=== PATIENT | female | born 1990 | race Caucasian/White ===

== ENCOUNTER 2017-04-08 08:45 | Day surgery (SDC) | payer OTHER ==
[2017-04-08 09:12] LABS: HEMATOCRIT 40.6 % (36.0-47.0); HEMOGLOBIN 14.6 g/dL (12.0-15.5); HGB HCT DIFFERENCE 3.2; MEAN CORPUSCULAR HGB CONC 35.9 g/dL (32.0-36.0); MEAN CORPUSCULAR VOLUME 92 fl (80-97); RED BLOOD COUNT 4.41 10^6/uL (3.72-5.28); RED CELL DISTRIBUTION WIDTH 12.5 % (11.5-14.0); WHITE BLOOD COUNT 6.8 10^3/uL (4.0-10.5)
[2017-04-08 09:23] LABS: BLOOD UREA NITROGEN 7 mg/dL (7-20); CREATININE RESULT 0.59 mg/dL (0.52-1.25)
[2017-04-08 09:33] LABS: PROTHROMBIN TIME 13.4 SEC (11.4-15.4)
[2017-04-08 09:34] LABS: PARTIAL THROMBOPLASTIN TIME 30.1 SEC (23.5-35.8)
[2017-04-08] MEDS ORDERED: MIDAZOLAM 2 MG/2 ML INJ ONE (10:45)
[2017-04-08] MEDS ORDERED: FENTANYL CITRATE INJ/PF 100 MCG/2 ML AMPUL ONE (10:46)
--- NOTE | 2017-04-08 11:42 | RADIOLOGY REPORT (SQ) ---
EXAM DESCRIPTION: CT BIOPSY LIVER; CT NEEDLE PLACEMENT COMPLETED DATE/TIME: 04/08/2017 11:33 am REASON FOR STUDY: HEP C, ELEVATED LFT R94.5 ABNORMAL RESULTS OF LIVER FUNCTION STUDIES COMPARISON: None. FLUORO TIME: 26.7 sec LIMITATIONS: None. PROCEDURE: After obtaining informed consent, the patient was brought to the CT suite and was placed supine on the CT table. The patient was prepped and draped in the usual sterile fashion . Axial ankit ges were obtained for targeting of theright hepatic lobe. An appropriate access site was selected. IV sedation was administered and physician direction by the registered nurse using 1 milligrams of Vers ed and 50 micrograms of fentanyl. Physiologic monitoring was provided before, during, and after sedat ion. The total sedation time was 15 minutes. Documentation face to face time, the performing interventional radiologist, spent monitoring the chester ent: 15minutes. The skin, soft tissues, and liver capsule were anesthetized 1% lidocaine. Small skin incision was ma de. Using CT fluoroscopic guidance, a 17 gauge Temno coaxial outer guiding trocar was advanced into the right hepatic lobe. Needle position was confirmed with dedicated CT imaging. The inner stylet w as removed and 2 core biopsy samples were obtained using an 18 gauge Temno coaxial core biopsy needle . The biopsy samples placed in formalin sent to the lab for analysis. The outer guiding trocar was removed as Gelfoam pledgets were inserted. Postprocedural CT images demonstrate no significant hemor rhage. A sterile dressing was placed over the wound. The patient left CT suite in stable condition. No immediate complications. IMPRESSION: CT-guided random liver biopsy. Pathology pending. COMMENT: Patient medication list reviewed:Yes- Quality ID# [id number]:Eligible professional attests to docu menting in the medical record they obtained, updated, or reviewed the patient's current medications. Quality ID #76: The patient was prepped and draped using maximum sterile barrier technique including cap, mask, sterile gown, sterile gloves, a large sterile sheet, hand hygiene, and 2% Chlorhexidine fo r cutaneous antisepsis. When ultrasound is used, sterile ultrasound techniques are followed requiring sterile gel and sterile probes. Quality ID 145: Final reports for procedures using fluoroscopy that document radiation exposure quin tammie, or exposure time and number of fluorographic images (if radiation exposure indices are not avail able) Quality ID# [id number]: Final reports with documentation of one or more dose reduction techniques (e.g., Aut omated exposure control, adjustment of the mA and/or kV according to patient size, use of iterative r econstruction technique) TECHNICAL DOCUMENTATION: JOB ID: [id number] [employer]- All Rights Reserved
[2017-04-08] MEDS ORDERED: OXYCODONE-ACETAMINOPHEN 5-325 MG TABLET ONE ×2 (12:05→12:29)
[2017-04-08 15:38] VITALS: BP 105/71
== END 2017-04-08 14:15 | disposition home or self-care (01) ==
LOC: RAD 08:45 → EDSTATUS 11:00 → RAD 14:15
PROVIDERS: ATTEND Internal Medicine Gastroenterology
PROC: 0FB13ZX Excision of Right Lobe Liver, Percutaneous Approach, Diagnostic (ICD-10-PCS; principal; 2017-04-08)
DX: B18.2 Chronic viral hepatitis C (principal); R10.11 Right upper quadrant pain
CPT/HCPCS: 36415; 84520; 82565; 85027; 85610; 85730; 88307 ×2; 88312 ×2; 77012; 47000; J2250; J3010